=== PATIENT | male | born 1985 | race Two or more races ===

== ENCOUNTER 2018-02-27 19:40 | Emergency (ER) | payer MEDICAID ==
[~2018-02-27] VITALS: Ht 182.9 cm; Wt 122.7 kg
[2018-02-27 19:43] VITALS: BP 164/92
== END 2018-02-27 20:27 | disposition home or self-care (01) ==
LOC: ED 20:00
DX: K04.7 Periapical abscess without sinus (principal); K02.9 Dental caries, unspecified
CPT/HCPCS: 99283